=== PATIENT | male | born 1940 | race Caucasian/White ===

== ENCOUNTER → 2020-09-28 | Outpatient (CLI) | payer OTHER ==
--- NOTE | 2020-09-28 11:56 | 2DMMODE ---
[place] [address] 2 D/M-MODE ECHOCARDIOGRAM Name: ROBERT CARLOS Room: [facility]#: [id number] Admission: 09/28/20 Attend Phys: Duglas Guzman Discharge: Date of : 38 Date of Service: 09/28/20 1156 Report #: [id number] THIS REPORT FOR: cc: FAM - No family physician/PCP FAM - No family physician/PCP Kervin Akbar MD [facility] ~ APPROVED REPORT Study performed: 09/28/2020 09:53:06 EXAM: Comprehensive 2D, Doppler, and color-flow Echocardiogram Patient Location: Out-Patient BSA: 2.04 HR: 60 bpm BP: 120/60 mmHg Other Information Study Quality: Good Indications CAD Aortic Valve replacement 2D Dimensions IVSd: 11.68 (7-11mm) LVOT Diam: 20.07 (18-24mm) LVDd: 46.19 mm PWd: 11.28 (7-11mm) Ascending Ao: 45.26 (22-36mm) LVDs: 25.63 (25-40mm) Aortic Root: 28.04 mm Volumes Left Atrial Volume (Systole) LA ESV Index: 22.20 mL/m2 Aortic Valve AoV Peak Andrew.: 2.65 m/s AO Peak Gr.: 28.01 mmHg LVOT Max P.50 mmHg AO Mean Gr.: 16.20 mmHg LVOT Mean P.35 mmHg LVOT Max V: 0.79 m/s AO V2 VTI: 64.36 cm LVOT Mean V: 0.55 m/s REENA (VTI): 1.06 cm2 LVOT V1 VTI: 21.51 [place] [address] 2 D/M-MODE ECHOCARDIOGRAM Name: ROBERT CARLOS Room: [facility]#: [id number] Admission: 09/28/20 Attend Phys: Duglas Guzman Discharge: Date of : 38 Date of Service: 09/28/20 1156 Report #: [id number] E/A Ratio: 0.96 MV Decel. Time: 360.52 ms MV E Max Andrew.: 0.72 m/s MV PHT: 104.55 ms MVA (PHT): 2.10 cm2 TDI E/Lateral E': 5.54 E/Medial E': 9.00 Medial E' Andrew.: 0.08 m/s Lateral E' Andrew.: 0.13 m/s Pulmonary Valve PV Peak Andrew.: 1.16 m/s PV Peak Gr.: 5.36 mmHg Tricuspid Valve RAP Estimate: 5.00 mmHg TR Peak Gr.: 20.23 mmHg RVSP: 25.23 mmHg PA Pressure: 25.23 mmHg Left Ventricle The left ventricle is normal size. There is normal LV segmental wall motion. There is normal left ventricular wall thickness. Left ventricular systolic function is normal. LVEF is 55-60%. Grade II - pseudonormal filling dynamics. Right Ventricle The right ventricle is normal size. The right ventricular systolic function is normal. Atria The left atrium size is normal. The right atrium size is normal. Aortic Valve Mechanical aortic valve is present. No aortic regurgitation is present. There is no aortic valvular stenosis. Mitral Valve The mitral valve is normal in structure. Mild mitral regurgitation. No evidence of mitral valve stenosis. Tricuspid Valve The tricuspid valve is normal in structure. Mild tricuspid regurgitation[place] [address] 2 D/M-MODE ECHOCARDIOGRAM Name: ROBERT CARLOS [id number] Admission: 09/28/20 Attend Phys: Duglas Guzman Discharge: Date of : 38 Date of Service: 09/28/20 1156 Report #: [id number] The pulmonary valve is normal in structure. There is no pulmonic valvular regurgitation. Great Vessels The aortic root is normal in size. The ascending aorta is moderately dilated. (4.6 cm) IVC is normal in size and collapses >50% with inspiration. Pericardium There is no pericardial effusion. <Conclusion> The left ventricle is normal size. There is normal left ventricular wall thickness. Left ventricular systolic function is normal. LVEF is 55-60%. Grade II - pseudonormal filling dynamics. There is normal LV segmental wall motion. Mechanical aortic valve is present. No aortic regurgitation is present. There is no aortic valvular stenosis. Mild mitral regurgitation. Mild tricuspid regurgitation. The ascending aorta is moderately dilated. (4.6 cm) <ELECTRONICALLY SIGNED> By: Kervin Akbar MD, FACC 09/28/20 1156 1156 1156 Kervin Akbar MD, FACC /INF
== END ==
LOC: M.CRD 09:55
PROVIDERS: ATTEND Chiropractor
DX: I08.1 Rheumatic disorders of both mitral and tricuspid valves (principal); I25.10 Atherosclerotic heart disease of native coronary artery without angina pectoris; R55 Syncope and collapse